=== PATIENT | female | born 1990 | race African-American/Black ===

== ENCOUNTER 2017-08-11 10:47 | Emergency (ER) | payer OTHER ==
[2017-08-11 11:27] LABS: ABS Basophils 0 10^3/ul (0-0.2); ABS Eosinophils 0 10^3/ul (0-0.6); ABS Lymphocytes 1.5 10^3/ul (1.0-4.8); ABS Monocytes 0.8 10^3/ul (0-0.8); ABS Neutrophils 4.8 10^3/ul (1.5-7.7); ABS Nucleated RBC 0 10^3/ul; Eosinophil % 0.7 % (0-6); Hematocrit 39 % (35-47); Hemoglobin 12.7 g/dl (12.0-16.0); Lymphocyte % 20.7 % (25-47); Mean Corpuscular HGB Conc 33 g/dl (31-36); Mean Corpuscular Hemoglobin 29 pg (27-31); Mean Corpuscular Volume 87 fL (80-97); Mean Platelet Volume 8 um3 (7.4-10.4); Nucleated Red Blood Cells % 0; Platelet Count 267 10^3/ul (150-450); Red Blood Count 4.45 10^6/ul (4.0-5.4); Red Cell Distribution Width 14 % (10.5-15); White Blood Count 7.2 10^3/ul (3.5-10.8)
[2017-08-11] MEDS ORDERED: Lidocaine 2% VISCOUS* 15 ML UDC PO ONE (11:41)
[2017-08-11] MEDS ORDERED: Al Hydrox/Mg Hydrox/Simet LIQ* 30 ML UDC PO ONE (11:41)
--- NOTE | 2017-08-11 12:12 | ED ---
Throat Pain/Nasal Congestion - HPI Summary HPI Summary: 26 female presents to ED sent over from urgent care with complaints of foreign body sensation in her throat that has been ongoing for the past month. States this morning it worsened and she felt she could not breath. Denies any choking and states symptoms come and go for the past few weeks. States before this began she had the flu and was very congested. Tried home remedies such as eating bread, drinking tea and using bianca seltzer without significant relief. Had a negative xray at urgent care and negative strep. Also has EENT follow up . Denies fever/chills. Also states her ears feel congested. No other complaints. No PMHx. No known thyroid disease. Came here to have further work up /blood work. States her symptoms are currently at a minimum and "ofcourse seem to be approving". - History of Current Complaint Chief Complaint: EDForeignBodyEsophag Time Seen by Provider: 08/11/17 11:03 Hx Obtained From: Patient Onset/Duration: Sudden Onset, Lasting Weeks, Still Present Severity: Mild Associated Signs And Symptoms: Positive: FB Sensation Cough: Nonproductive - Allergies/Home Medications Allergies/Adverse Reactions: Allergies Allergy/AdvReac Type Severity Reaction Status Date / Time No Known Allergies Allergy Verified 08/11/17 10:54 PMH/Surg Hx/FS Hx/Imm Hx Endocrine/Hematology History: Denies: Hx Diabetes Cardiovascular History: Denies: Hx Hypertension Respiratory History: Denies: Hx Asthma - Surgical History Surgery Procedure, Year, and Place: n/a - Immunization History Date of Tetanus Vaccine: unknown Immunizations Up to Date: Yes Infectious Disease History: No Infectious Disease History: Denies: Traveled Outside the [place] in Last 30 Days - Family History Known Family History: Positive: None - Social History Alcohol Use: Occasionally Substance Use Type: Reports: None Smoking Status (MU): Former Smoker Review of Systems Constitutional: Negative Positive: Other - FB sensation in throat, ear pressure/congestion Cardiovascular: Negative Positive: Cough Gastrointestinal: Negative Skin: Negative Neurological: Negative All Other Systems Reviewed And Are Negative: Yes Physical Exam Triage Information Reviewed: Yes Vital Signs On Initial Exam: Initial Vitals Temp Pulse Resp BP Pulse Ox 97.5 F 73 19 115/83 100 08/11/17 10:51 08/11/17 10:51 08/11/17 10:51 08/11/17 10:51 08/11/17 10:51 Vital Signs Reviewed: Yes Appearance: Positive: Well-Appearing, No Pain Distress, Well-Nourished Skin: Positive: Warm, Skin Color Reflects Adequate Perfusion, Dry. Negative: Cold, Numb, Cyanosis @, Pale, Erythema @ Head/Face: Positive: Normal Head/Face Inspection Eyes: Positive: Normal, EOMI, JAMESON, Conjunctiva Clear ENT: Positive: Hearing grossly normal, Pharyngeal erythema, Nasal congestion, TMs normal, Uvula midline - airway patent, no sign of FB or peritonsillar abscess, Other - no thyoid nodules or abnormal findings on palpation. Negative : Nasal drainage, TM bulging, TM dull, TM red, Tonsillar swelling, Tonsillar exudate Neck: Positive: Supple, Nontender, No Lymphadenopathy Respiratory/Lung Sounds: Positive: Clear to Auscultation, Breath Sounds Present , Wheezes. Negative: Decreased Breath Sounds, Rales, Rhonchi, Stridor, Tracheal Deviation Cardiovascular: Positive: Normal, RRR, Pulses are Symmetrical in both Upper and Lower Extremities. Negative: Murmur, Rub Abdomen Description: Positive: Nontender, Soft Bowel Sounds: Positive: Present Musculoskeletal: Positive: Normal, Strength/ROM Intact Neurological: Positive: Normal, Sensory/Motor Intact, Alert, Oriented to Person Place, Time, Normal Gait Diagnostics - Vital Signs Vital Signs Temp Pulse Resp BP Pulse Ox 08/11/17 11:09 72 100 08/11/17 11:06 111/89 08/11/17 10:51 97.5 F 73 19 115/83 100 - Laboratory Lab Results: Lab Results 08/11/17 08/11/17 Range/Units 11:15 11:15 WBC 7.2 (3.5-10.8) 10^3/ul RBC 4.45 (4.0-5.4) 10^6/ul Hgb 12.7 (12.0-16.0) g/dl Hct 39 (35-47) % MCV 87 (80-97) fL MCH 29 (27-31) pg MCHC 33 (31-36) g/dl RDW 14 (10.5-15) % Plt Count 267 (150-450) 10^3/ul MPV 8 (7.4-10.4) um3 Neut % (Auto) 66.9 (38-83) % Lymph % (Auto) 20.7 L (25-47) % [place] % (Auto) 11.4 H (0-7) % Eos % (Auto) 0.7 (0-6) % Baso % (Auto) 0.3 (0-2) % Absolute Neuts (auto) 4.8 (1.5-7.7) 10^3/ul Absolute Lymphs (auto) 1.5 (1.0-4.8) 10^3/ul Absolute Monos (auto) 0.8 (0-0.8) 10^3/ul Absolute Eos (auto) 0 (0-0.6) 10^3/ul Absolute Basos (auto) 0 (0-0.2) 10^3/ul Absolute Nucleated RBC 0 10^3/ul Nucleated RBC % 0 Sodium 137 (133-145) mmol/L Potassium 3.8 (3.5-5.0) mmol/L Chloride 104 (101-111) mmol/L Carbon Dioxide 25 (22-32) mmol/L Anion Gap 8 (2-11) mmol/L BUN 7 (6-24) mg/dL Creatinine 0.82 (0.51-0.95) mg/dL Est GFR ( Amer) 106.8 (>60) Est GFR (Non-Af Amer) 83.0 (>60) BUN/Creatinine Ratio 8.5 (8-20) Glucose 87 (70-100) mg/dL Calcium 9.7 (8.6-10.3) mg/dL Total Bilirubin 0.60 (0.2-1.0) mg/dL AST 15 (13-39) U/L ALT 7 (7-52) U/L Alkaline Phosphatase 33 L (34-104) U/L Total Protein 7.4 (6.4-8.9) g/dL Albumin 4.5 (3.2-5.2) g/dL Globulin 2.9 (2-4) g/dL Albumin/Globulin Ratio 1.6 (1-3) TSH 2.18 (0.34-5.60) mcIU/mL Thyroxine (T4) 10.16 (6.09-12.23) mcg/mL Result Diagrams: 08/11/17 11:15 08/11/17 11:15 Lab Statement: Any lab studies that have been ordered have been reviewed, and results considered in the medical decision making process. Re-Evaluation - Re-Evaluation First Eval Re-Evaluation Time: 12:15 Change: Improved - had some relief from GI cocktail, however still has sensation on right side of anterior neck EENT Course/Dx - Course Course Of Treatment: xray already obtained by [facility] without significant findings. negative strep. normal vitals. does not appear to be in any respiratory distress or throat swelling. given GI cocktail with little relief, however patient had relief of symptoms SHIFT COORDINATOR of ED, mostly. No other abnormal findings. Normal vitals. Normal physical exam. Aware of worsening signs and symptoms to watch out for. No other concerns at this time. Has ENT appointment on 08/31. No concern for emergent etiology. No distress and is able to tolerate po without difficulty. Follow up. Labs obtained adn unremarkable, including thyroid hormones. - Differential Diagnoses Differential Diagnoses: Foreign Body, Laryngitis, Pharyngitis, URI/Bronchitis, Other - congestion - Diagnoses Provider Diagnoses: Head congestion, Sensation of foreign body in throat - Provider Notifications Discussed Care Of Patient With: Dr Hernandez Discharge - Discharge Plan Condition: Stable Disposition: HOME Patient Education Materials: Decongestant/Expectorant (By mouth), Warm Compress or Soak (ED) Referrals: Brittani Tejeda MD [Primary Care Provider] - Additional Instructions: Recommend drinking hot tea with honey multiple times for the next couple of days. Increase fluid intake. Mucinex-D to decrease congestion for the next 7-10 days. Ibuprofen for any pain/inflammation. Please follow up with ENT to rule out other etiology. Any new symptoms such as unable to drink/eat or breath please return to ED immediately. Follow up with PCP.
[2017-08-11 12:25] VITALS: BP 119/66
== END 2017-08-11 12:24 | disposition home or self-care (01) ==
LOC: ED 10:47
DX: R09.89 Other specified symptoms and signs involving the circulatory and respiratory systems (principal); Z87.891 Personal history of nicotine dependence
CPT/HCPCS: 36415; 80053; 84436; 84443; 85025; 99283; A9270-GY